=== PATIENT | male | born 1985 | race Caucasian/White ===

== ENCOUNTER 2021-04-28 22:03 | Emergency (ER) | payer OTHER, SELFPAY ==
[2021-04-28 22:04] VITALS: BP 145/86; PULSE 112; RESP 18; TEMP 38.2; O2SAT 97; BMI 28.3
[2021-04-28 22:16] VITALS: O2SAT 97
--- NOTE | 2021-04-28 22:24 | EX.ED.DYSGE1 ---
HPI History of Present Illness Chief Complaint: Cold Sx Informant: patient Narrative Narrative: Patient presents with about 6days of fevers, myalgias, loss of taste and smell, cough and exposure to his who has symptoms. His 's close coworker is diagnosed with Covid. Patient also has several children with the symptoms. He states he is coughing a lot but is not notably short of breath. He has some mild nausea but is never been vomiting. He is able to eat and drink. His appetite is down. Patient does have a history of exercise-induced asthma. He was also seen in urgent care yesterday. Covid test was not done. They gave him prescription for a azithromycin, dexamethasone and inhaler. Past medical history: Exercise-induced asthma Medications as above No known drug allergies, positive allergy to bee venom No recent surgeries Lives with family non-smoker Works full-time PFSH PFSH Home Medications ondansetron 4 mg PO Q8H PRN #10 tab 04/28/21 [Rx Last Taken Unknown] Allergy/AdvReac Type Severity Reaction Status Date / Time bee venom protein (honey bee) Allergy Anaphylaxis Verified 04/28/21 22:07 Social History Smoking Status: Never smoker ROS ROS ED Constitutional Constitutional ED: Reports chills, fever(s) and subjective Eyes Eyes: Denies blurry vision or change in vision ENT ENT ED: Reports rhinorrhea; Denies ear pain or sore throat Cardiovascular Cardiovascular: Denies chest pain or palpitations Respiratory/Chest Respiratory/Chest: Reports cough; Denies dyspnea or sputum Gastrointestinal Gastrointestinal: Reports nausea; Denies abdominal pain, diarrhea or vomiting Genitourinary Genitourinary ED: Denies dysuria Musculoskeletal Musculoskeletal: Reports myalgias Integumentary Denies rash Neurologic Neurologic: Reports headache(s); Denies paresthesias or weakness Endocrine Endocrinology: Denies polydipsia or polyuria Allergic/Immunologic Allergic/Immunologic ED: Denies urticaria EXAM Physical Exam Const Vital Signs: 04/28/21 22:04 Temperature 100.8 F H Temperature Source Temporal Pulse Rate 112 H Respiratory Rate 18 Blood Pressure 145/86 H Blood Pressure Mean 105 Pulse Ox 97 Oxygen Delivery Method Room Air Positive well nourished and well developed General Appearance ED: well developed and NAD HEENT Reports moist mucous membranes Eyes General Eye ED: Negative for pale conjunctiva or scleral icterus Neck no lymphadenopathy and no JVD Resp normal respiratory effort and clear to auscultation bilaterally Auscultation: Negative for rales, rhonchi or wheezes Cardio regular rate, regular rhythm and no murmurs GI normal to inspection, nondistended, normoactive bowel sounds and non-tender Palpation: soft Back/Spine no CVA tenderness Extremity normal to inspection General Extremety ED: Negative for edema General Extremity: Negative for edema Neuro Sensorium / Orientation: alert Psych mental status grossly normal Skin no rashes or lesions noted and no wounds MDM MDM MDM Narrative Medical decision making narrative: Patient's chest x-ray looked at by me and read by radiology shows no acute process. His Covid is positive which was expected. I will write for some Zofran that he has available in case he develops worsening nausea. He has never vomited. We have asked planed that he needs to really quarantine for about 2 more weeks but at least until symptoms are resolved. Recommendation is 20 days from onset. His children and have similar symptoms. They should also quarantine. Lab Data Attestation: I reviewed the patient's lab results. Radiography Diagnostic Testing: Clinical Impression(s) from Imaging Studies Chest X-Ray 04/28/21 22:39 IMPRESSION: Normal x-ray examination of the chest. Electronically Signed: William BlancoDO at 22:59 EDT Tel [phone], Service support , Discharge Plan Triage Chief Complaint: Cold Sx ED Provider: Bishnu Rivero Dx/Rx/DC Orders Clinical Impression: COVID Instructions: Caring for Someone Who Has COVID-19 Prescriptions: New ondansetron 4 mg tablet,disintegrating 4 mg PO Q8H PRN (Reason: nausea and vomiting) Qty: 10 RF: 0 Primary Care Provider: Ned Meeks Referrals: Ned Meeks MD [Primary Care Provider] - 10-14 Days if not better Disposition Disposition: Home, Self Care
--- NOTE | 2021-04-28 22:39 | RAD_ITS ---
STUDY: X-RAY CHEST REASON FOR EXAM: Male, 35 years old. Cough. Question COVID infection. TECHNIQUE: Single AP portable view of the chest. COMPARISON: None. FINDINGS: The lungs are clear and expanded. There is no demonstrated pleural abnormality. Normal size heart. Normal mediastinum and rikki. Normal visualized pulmonary arteries. Normal visualized aortic arch and descending thoracic aorta. Normal visualized thoracic spine. Normal visualized ribs, clavicles, and shoulders. There is no demonstrated abnormality of the visualized soft tissue structures of the upper abdomen. RAD/Chest 1 View (Portable) IMPRESSION: Normal x-ray examination of the chest. Electronically Signed: William Blanco DO at 22:59 EDT Tel [phone], Service support ,
== END 2021-04-28 23:13 | disposition home or self-care (01) ==
PROVIDERS: Emergency Provider Emergency Medicine; PCP Family Medicine
DX: U07.1 COVID-19 (principal); J45.990 Exercise induced bronchospasm
CPT/HCPCS: 71045; 87426; 99282